=== PATIENT | female | born 1985 | race African-American/Black ===

== ENCOUNTER 2017-11-09 20:28 | Emergency (ER) | payer BC, OTHER ==
[~2017-11-09] VITALS: Ht 162.6 cm; Wt 92.3 kg
[~2017-11-09 20:28] MED LIST: AMOX875 PO; IMPL68IM SC
[2017-11-09 20:30] VITALS: BP 128/79; PULSE 110; RESP 16; TEMP 102.4; O2SAT 96
--- NOTE | 2017-11-10 01:08 | PD ---
HPI Chief Complaint: Cold / Flu Symptoms Time Seen by Provider: 01:02 Travel History International Travel<30 days: No Contact w/Intl Traveler<30days: No Traveled to known affect area: No History of Present Illness HPI 32-year-old female presents to the emergency department by private transportation with symptoms consistent with the flu since Thursday. Patient's had fever chills sore throat myalgias arthralgias nonproductive cough and states symptoms have not improved on NyQuil. Patient denies any chronic medical problems. Patient denies . Last medication was a 2 or 3 PM in the afternoon. Patient does not have the flu vaccine. Patient denies vomiting diarrhea or abdominal pain. 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 HEAD: Normocephalic. EYES: No scleral icterus. No injection or drainage. ENT: Mucous membranes moist airway is patent NECK: Supple, trachea midline. No JVD or lymphadenopathy. CARDIOVASCULAR: Regular rate and rhythm without murmurs, gallops, or rubs. RESPIRATORY: Breath sounds equal bilaterally. No accessory muscle use. GASTROINTESTINAL: Abdomen soft, non-tender, nondistended. MUSCULOSKELETAL: No cyanosis, or edema. BACK: Nontender without obvious deformity. No CVA tenderness. Data Data Last Documented VS Vital Signs Date Time Temp Pulse Resp B/P (MAP) Pulse Ox O2 Delivery O2 Flow Rate FiO2 11/09/17 20:30 102.4 110 16 128/79 (95) 96 Room Air Orders Orders Influenzae A/B Antigen (11/10/17 01:02) Group A Rapid Strep Screen (11/10/17 01:02) Ibuprofen (Motrin) (1/30/18 01:15) Ed Urine Pregnancytest Poc (11/10/17 01:02) Strep Culture (Group A) (11/10/17 01:20) Oseltamivir (Tamiflu) (11/10/17 03:00) MDM Medical Decision Making Medical Screen Exam Complete: Yes Emergency Medical Condition: Yes Medical Record Reviewed: Yes Interpretation(s) Influenza A positive Differential Diagnosis viral syndrome, febrile illness, pharyngitis, influenza, bronchitis, pneumonia, UTI Narrative Course Ibuprofen 800 mg administered [id number] hCG ordered At 2:54 AM patient is informed influenza A is positive given first dose of Tamiflu Diagnosis Primary Impression: Influenza A Referrals: Primary Care Physician call for appointment Patient Instructions: General Instructions Departure Forms: Tests/Procedures, Work Release Special Instructions: No work 4 days Additional Instructions: Increase fluid hydration Take acetaminophen/Tylenol for fever 100.4F or greater Take ibuprofen/Advil/Motrin for fever 100.4F or greater Complete course of Tamiflu Follow-up with primary care provider Return to the emergency department as needed No work 4 days Med/Other Pt SpecificInfo: Prescription(s) given Scripts Oseltamivir (Tamiflu) 75 Mg Cap 75 MG PO BID for Mgmt Viral Infection for 5 Days, #10 CAP 0 Refills Prov: Armida Raza MD 11/10/17 Disposition: 01 DISCHARGE HOME Condition: Stable Armida Raza MD Nov 10, 2017 01:08
[2017-11-10] MEDS ORDERED: IBUPROFEN 800 MG TAB PO ONE (01:15)
[2017-11-10] MEDS ORDERED: OSEL75 PO (02:55)
[2017-11-10] MEDS ORDERED: OSELTAMIVIR PHOSPHATE 75 MG CAP PO ONE (03:00)
== END 2017-11-10 03:43 | disposition home or self-care (01) ==
LOC: NEPC 20:28
DX: J09.X2 Influenza due to identified novel influenza A virus with other respiratory manifestations (principal)
CPT/HCPCS: 84703; 87081; 87804; 87880; 99283